=== PATIENT | female | born 1990 | race African-American/Black ===

== ENCOUNTER 2018-05-17 20:04 | Emergency (ER) | payer BC ==
[~2018-05-17] VITALS: Ht 154.9 cm; Wt 72.6 kg
[~2018-05-17 20:04] MED LIST: BREO ELLIPTA 11 EACH IH; KEFLEX500 MG PO; LIDOCAINE VISC100 M1 MM; MEDROLDOSEPACK PO; NOHOMEMEDICATIONS; NORCO 5-325 TA1 EACH PO; PREDNISONE 20 M20 MG PO; PREDNISONE50 MG PO; TESSALON PERLE100 MG PO; TRIAMCINOLONE A15 G1 TP; TYLENOL325 MG PO; VENTOLIN HFA 1818 GM INH; ZPAK PO
[2018-05-17] MEDS ORDERED: SINGULAIR 10 MG10 MG PO (20:15)
[2018-05-17] MEDS ORDERED: FLONASE 0.05%50 MCG NASAL (21:09)
[2018-05-17] MEDS ORDERED: CEFDINIR300 MG PO (21:09)
[2018-05-17 21:34] VITALS: BP 114/78
== END 2018-05-17 21:25 | disposition home or self-care (01) ==
LOC: ER 20:04
DX: H66.91 Otitis media, unspecified, right ear (principal); J45.909 Unspecified asthma, uncomplicated

== ENCOUNTER 2021-06-29 19:18 | Emergency (ER) | payer OTHER ==
[~2021-06-29] VITALS: Ht 154.9 cm; Wt 72.6 kg
[~2021-06-29 19:18] MED LIST changes: +CEFDINIR300 MG PO; +FLONASE 0.05%50 MCG NASAL; +SINGULAIR 10 MG10 MG PO
[2021-06-29] MEDS ORDERED: NUVARING VAGIN1 EACH VAG (19:39)
[2021-06-29] MEDS ORDERED: DICLOFENAC SODI25 MG PO (20:31)
[2021-06-29 20:41] VITALS: BP 128/65
== END 2021-06-29 20:41 | disposition home or self-care (01) ==
LOC: ER 19:18
DX: M79.674 Pain in right toe(s) (principal); J45.909 Unspecified asthma, uncomplicated; Z79.51 Long term (current) use of inhaled steroids; Z79.899 Other long term (current) drug therapy